=== PATIENT | female | born 1960 | race Caucasian/White ===

== ENCOUNTER 2018-10-20 05:37 | Emergency (ER) | payer MEDICAID ==
[~2018-10-20] VITALS: Ht 162.6 cm; Wt 85.3 kg
[2018-10-20 06:04] VITALS: BP 144/75
--- NOTE | 2018-10-20 06:37 | NUR ---
Patient discharged to home in stable condition. Written and verbal after care instructions given. Patient verbalizes understanding of instruction. Pt ambulatory with a steady gait
== END 2018-10-20 06:39 | disposition home or self-care (01) ==
LOC: ER 05:41
DX: T16.2XXA Foreign body in left ear, initial encounter (principal); X58.XXXA Exposure to other specified factors, initial encounter; Y93.89 Activity, other specified; Y92.89 Other specified places as the place of occurrence of the external cause; Y99.8 Other external cause status